=== PATIENT | male | born 1985 | race Asian ===

== ENCOUNTER 2018-12-09 00:28 | Inpatient (IN) | payer MEDICAID ==
[~2018-12-09] VITALS: Ht 170.2 cm; Wt 64.0 kg
[2018-12-09 00:54] VITALS: Ht 170.2 cm; Wt 64.0 kg
[2018-12-09 01:35] LABS: BASOPHIL % 0.5 % (0-2); PLATELET COUNT 205 x10^3mcL (130-400)
[2018-12-09 01:41] LABS: CARBON DIOXIDE 26.8 mmol/L (21-32); CHLORIDE SERUM 101 mmol/L (98-107); CREATININE SERUM 0.6 mg/dL (0.7-1.3); GFR1 > 60 mL/min; GLUCOSE SERUM 118 mg/dL (74-106); POTASSIUM SERUM 3.7 mmol/L (3.5-5.1); SODIUM SERUM 136 mmol/L (136-145)
[2018-12-09 01:46] LABS: ALBUMIN 3.4 g/dL (3.4-5.0); ALKALINE PHOSPHATASE 42 U/L (46-116); ALT/SGPT 36 U/L (16-63); AST/SGOT 18 U/L (15-37); BILIRUBIN TOTAL 0.35 mg/dL (0.20-1.00); LIPASE 257 IU/L (73-393); TOTAL PROTEIN, SERUM 6.6 g/dL (6.4-8.2)
[2018-12-09 01:56] LABS: RED CELL DISTRIBUTION WIDTH 15.8 % (11.5-14.5)
[2018-12-09] MEDS ORDERED: OMEPRAZOLE10 M1 (03:19)
[2018-12-09 04:07] VITALS: BP 112/65
[2018-12-09 04:12] LABS: MAGNESIUM 1.7 mg/dL (1.8-2.4); PHOSPHOROUS 2.5 mg/dL (2.5-4.9)
[2018-12-09 04:39] LABS: CHOLESTEROL/HDL RATIO 2.8
[2018-12-09 04:46] VITALS: BP 112/65
[2018-12-09 06:18] LABS: IRON 147 ug/dL (65-170); TOTAL IRON BINDING CAPACITY 268 ug/dL (250-450)
[2018-12-09 06:20] LABS: CALCIUM 7.9 mg/dL (8.5-10.1); CARBON DIOXIDE 27.3 mmol/L (21-32); CHLORIDE SERUM 107 mmol/L (98-107); CREATININE SERUM 0.6 mg/dL (0.7-1.3); GFR1 > 60 mL/min; GLUCOSE SERUM 97 mg/dL (74-106); PHOSPHOROUS 3.2 mg/dL (2.5-4.9); POTASSIUM SERUM 4.4 mmol/L (3.5-5.1); SODIUM SERUM 140 mmol/L (136-145)
[2018-12-09 07:18] LABS: BASOPHIL % 0.4 % (0-2); PLATELET COUNT 158 x10^3mcL (130-400); RED CELL DISTRIBUTION WIDTH 15.7 % (11.5-14.5)
[2018-12-09 08:35] VITALS: BP 105/70
[2018-12-09 08:41] LABS: RED BLOOD CELLS 4.93 M/mm3 (4.52-5.90)
[2018-12-09 11:26] LABS: IRON 231 ug/dL (65-170); TOTAL IRON BINDING CAPACITY 313 ug/dL (250-450)
[2018-12-09 11:55] LABS: microscopic required? NO
[2018-12-09 12:50] LABS: UA SPECIFIC GRAVITY 1.015 (1.005-1.035); urine erythrocyte NEGATIVE (NEGATIVE)
[2018-12-09 13:00] LABS: AMPHETAMINE QUAL UR NONE DETECTED (See below)
[2018-12-09 18:50] VITALS: BP 100/63
[2018-12-09 20:47] VITALS: BP 97/59
[2018-12-10 06:11] VITALS: BP 111/64
[2018-12-10 07:06] LABS: BASOPHIL % 0.4 % (0-2); PLATELET COUNT 178 x10^3mcL (130-400)
[2018-12-10 07:11] LABS: CALCIUM 7.8 mg/dL (8.5-10.1); CARBON DIOXIDE 27.5 mmol/L (21-32); CHLORIDE SERUM 106 mmol/L (98-107); CREATININE SERUM 0.7 mg/dL (0.7-1.3); GFR1 > 60 mL/min; GLUCOSE SERUM 76 mg/dL (74-106); POTASSIUM SERUM 4.3 mmol/L (3.5-5.1); SODIUM SERUM 139 mmol/L (136-145)
[2018-12-10 07:26] LABS: RED CELL DISTRIBUTION WIDTH 15.7 % (11.5-14.5); rbc morphology (normal/abnorm) ABNORMAL (NORMAL)
[2018-12-10 08:36] VITALS: BP 101/54
[2018-12-10 12:25] VITALS: BP 109/71
[2018-12-10] MEDS ORDERED: BIA500 PO (13:27)
[2018-12-10] MEDS ORDERED: AMO500 PO (13:27)
[2018-12-10] MEDS ORDERED: FER300 PO (13:28)
[2018-12-10] MEDS ORDERED: PRI20 PO (13:36)
[2018-12-10 14:13] VITALS: BP 109/71
== END 2018-12-10 15:07 | disposition home or self-care (01) | DRG 241 ==
LOC: ED 00:28 → MU 03:02
PROVIDERS: Emergency Medicine; Internal Medicine Gastroenterology; ADMIT Internal Medicine
PROC: 0DB78ZX Excision of Stomach, Pylorus, Via Natural or Artificial Opening Endoscopic, Diagnostic (ICD-10-PCS; principal; 2018-12-09 08:30)
DX: K26.4 Chronic or unspecified duodenal ulcer with hemorrhage (principal); N17.0 Acute kidney failure with tubular necrosis; A04.8 Other specified bacterial intestinal infections; D50.0 Iron deficiency anemia secondary to blood loss (chronic); F10.10 Alcohol abuse, uncomplicated; D72.829 Elevated white blood cell count, unspecified; E86.0 Dehydration; R00.0 Tachycardia, unspecified; F17.210 Nicotine dependence, cigarettes, uncomplicated; Z68.22 Body mass index [BMI] 22.0-22.9, adult; Y90.0 Blood alcohol level of less than 20 mg/100 ml
CPT/HCPCS: 43235; C9113; G0480; J1200; J1610; J2250; J2310; J2405; J3010; J3490; J7030; Q0092

== ENCOUNTER 2020-08-20 19:27 | Emergency (ER) | payer MEDICAID ==
[~2020-08-20] VITALS: Ht 170.2 cm; Wt 69.4 kg
[~2020-08-20 19:27] MED LIST: AMO500 PO; BIA500 PO; FER300 PO; OMEPRAZOLE10 M1; PRI20 PO
[2020-08-20 19:52] VITALS: Ht 170.2 cm; Wt 69.4 kg
[2020-08-21 01:39] VITALS: BP 130/82
== END 2020-08-21 01:39 | disposition home or self-care (01) ==
LOC: ED 19:27
DX: N39.0 Urinary tract infection, site not specified (principal)
CPT/HCPCS: 82962; 87491; 87591; J0696